=== PATIENT | female | born 1995 | race American Indian/Alaskan Native ===

== ENCOUNTER 2020-11-30 19:52 | Emergency (ER) | payer SELFPAY ==
[2020-11-30 22:30] LABS: HCG Qualitative,Urine Negative (Negative)
[2020-11-30 22:51] LABS: Bilirubin,Urine NEG (Negative); Blood,Urine NEG (Negative); Color,Urine Yellow (Yellow); Mucus,Urine 2+ /HPF
--- NOTE | 2020-12-01 00:06 | Emergency Department Report ---
ED Female HPI - General Chief complaint: Urogenital-Female Stated complaint: VAGINAL DISCOMFORT/PAIN Source: patient Mode of arrival: Ambulatory Limitations: No Limitations - History of Present Illness Initial comments: Patient is a 25-year-old -[place] female with no past medical history presents to the ED with complaint of acute onset persistent vaginal discharge, vaginal pain with itching and irritation for the last 1 week. Patient states that the pain is worse with any urination or movement. Patient denies dyspareunia, vaginal bleeding, low back pain, chest pain, shortness of breath, abdominal pain, nausea and vomiting or diarrhea, dizziness, fever and chills. MD Complaint: vaginal discharge, dysuria, possible STD, other (vaginal pain) -: Sudden, week(s) (1) Location: labia, other (vaginal) Radiation: non-radiating Severity: severe Severity scale (0 -10): 7 Quality: sharp Consistency: constant Improves with: none Worsens with: urination, intercourse Are you Now?: No Associated Symptoms: denies other symptoms, vaginal discharge, dysuria, rash (vaginal). denies: vaginal bleeding, abdominal pain, nausea/vomiting, fever/chills, headaches, loss of appetite, hematuria, shortness of breath, syncope, weakness - Related Data Sexually active: Yes : 0 Para: 0 A: 0 Previous Rx's Medication Instructions Recorded Last Taken Type Ibuprofen [Motrin 800 MG tab] 800 mg PO Q8HR PRN #20 tablet 07/13/16 Unknown Rx Sulfamethoxazole/Trimethoprim 1 each PO BID #20 tablet 07/13/16 Unknown Rx [Bactrim DS TAB] traMADoL [Ultram] 50 mg PO Q6HR PRN #7 tablet 07/13/16 Unknown Rx Acyclovir 400 mg PO Q8H #30 tablet 12/01/20 Unknown Rx Doxycycline Hyclate 100 mg PO Q12H #20 tablet. 12/01/20 Unknown Rx Fluconazole [Diflucan TAB] 200 mg PO QDAY #1 tablet 12/01/20 Unknown Rx Ibuprofen [Motrin] 600 mg PO Q8H PRN #30 tablet 12/01/20 Unknown Rx Ondansetron [Zofran Odt] 4 mg PO Q8HR PRN #20 tab.rapdis 12/01/20 Unknown Rx metroNIDAZOLE [Flagyl TAB] 500 mg PO Q12HR #20 tab 12/01/20 Unknown Rx Allergies Allergy/AdvReac Type Severity Reaction Status Date / Time No Known Allergies Allergy Unverified 07/13/16 15:23 ED Review of Systems ROS: Stated complaint: VAGINAL DISCOMFORT/PAIN Other details as noted in HPI Constitutional: denies: chills, fever Eyes: denies: eye pain, eye discharge, vision change ENT: denies: ear pain, throat pain Respiratory: denies: cough, shortness of breath, wheezing Cardiovascular: denies: chest pain, palpitations Endocrine: no symptoms reported Gastrointestinal: denies: abdominal pain, nausea, diarrhea Genitourinary: urgency, dysuria, frequency, discharge, other (painful vaginal lesions) Musculoskeletal: denies: back pain, joint swelling, arthralgia Skin: denies: rash, lesions Neurological: denies: headache, weakness, paresthesias Psychiatric: denies: anxiety, depression Hematological/Lymphatic: denies: easy bleeding, easy bruising ED Past Medical Hx - Past Medical History Previous Medical History?: No - Surgical History Past Surgical History?: No - Social History Smoking Status: Never Smoker Substance Use Type: None - Medications Home Medications: Home Medications Medication Instructions Recorded Confirmed Last Taken Type Ibuprofen [Motrin 800 MG tab] 800 mg PO Q8HR PRN #20 tablet 07/13/16 Unknown Rx Sulfamethoxazole/Trimethoprim 1 each PO BID #20 tablet 07/13/16 Unknown Rx [Bactrim DS TAB] traMADoL [Ultram] 50 mg PO Q6HR PRN #7 tablet 07/13/16 Unknown Rx Acyclovir 400 mg PO Q8H #30 tablet 12/01/20 Unknown Rx Doxycycline Hyclate 100 mg PO Q12H #20 tablet.dr 12/01/20 Unknown Rx Fluconazole [Diflucan TAB] 200 mg PO QDAY #1 tablet 12/01/20 Unknown Rx Ibuprofen [Motrin] 600 mg PO Q8H PRN #30 tablet 12/01/20 Unknown Rx Ondansetron [Zofran Odt] 4 mg PO Q8HR PRN #20 tab.rapdis 12/01/20 Unknown Rx metroNIDAZOLE [Flagyl TAB] 500 mg PO Q12HR #20 tab 12/01/20 Unknown Rx ED Physical Exam - General Limitations: No Limitations General appearance: alert, in no apparent distress - Head Head exam: Present: atraumatic, normocephalic, normal inspection - Eye Eye exam: Present: normal appearance, PERRL, EOMI Pupils: Present: normal accommodation - ENT ENT exam: Present: normal exam, normal orophraynx, mucous membranes moist, TM's normal bilaterally, normal external ear exam - Neck Neck exam: Present: normal inspection, full ROM - Respiratory Respiratory exam: Present: normal lung sounds bilaterally. Absent: respiratory distress, wheezes, rhonchi, stridor, chest wall tenderness, accessory muscle use, decreased breath sounds, prolonged expiratory - Cardiovascular Cardiovascular Exam: Present: regular rate, normal rhythm, normal heart sounds. Absent: systolic murmur, diastolic murmur, rubs, gallop - GI/Abdominal GI/Abdominal exam: Present: soft, normal bowel sounds. Absent: tenderness, guarding, hyperactive bowel sounds, hypoactive bowel sounds, organomegaly - External exam: Present: erythema, lesions (Vesicular ulcerated lesions throughout the labia minora and the perineum with yellowish purulent discharge) Speculum exam: Present: vaginal discharge, cervical discharge Bi-manual exam: Present: other (Female ED provider Ms. Hale present during the pelvic exam.) - Extremities Exam Extremities exam: Present: normal inspection, full ROM, normal capillary refill - Back Exam Back exam: Present: normal inspection, full ROM. Absent: tenderness, CVA tenderness (R), CVA tenderness (L), muscle spasm, paraspinal tenderness, vertebral tenderness - Neurological Exam Neurological exam: Present: alert, oriented X3, CN II-XII intact, normal gait, reflexes normal - Psychiatric Psychiatric exam: Present: normal affect, normal mood - Skin Skin exam: Present: warm, dry, intact, normal color. Absent: rash ED Course Vital Signs 11/30/20 12/01/20 20:10 00:48 Temperature 98.4 F 98.2 F Pulse Rate 95 H 72 Respiratory 18 16 Rate Blood Pressure 121/71 Blood Pressure 111/62 [Left] O2 Sat by Pulse 95 100 Oximetry ED Medical Decision Making - Medical Decision Making This is a 25-year-old -[place] female with no past medical history presents to the ED with complaint of acute onset persistent vaginal discharge, vaginal pain with itching and irritation for the last 1 week. In the ED, patient is alert and oriented x3 and is not in any distress. Urinalysis showed mild urinary tract infection but wet prep test was positive for trichomonas and Gardnerella vaginalis consistent with bacterial vaginosis. Based on the clinical finding of suspected tender ulcerated vesicular lesions, patient was also diagnosed with suspected genital herpes. Patient was therefore discharged home on antibiotics for bacterial vaginosis and trichomonas, also given antiv iral for suspected genital herpes infection. Patient was also discharged home on pain medications and advised to follow-up with [facility] physician, primary care physician or [facility] for further evaluation. Patient was also advised to ensure that her sexual partner also gets tested and treated at the [facility]. - Differential Diagnosis Genital herpes; UTI; bacterial vaginosis; trichomonas; STD Critical care attestation.: If time is entered above; I have spent that time in minutes in the direct care of this critically ill patient, excluding procedure time. ED Disposition Clinical Impression: Trichomonas vaginalis infection, Bacterial vaginosis, Genital herpes in women, Acute urinary tract infection, STD (sexually transmitted disease) Disposition: TO HOME OR SELFCARE Is pt being admited?: No Does the pt Need Aspirin: No Condition: Stable Instructions: Urinary Tract Infection, Adult, [id number], Bacterial Vaginosis, [id number], Genital Herpes, Trichomoniasis, Bacterial Vaginosis (ED) Additional Instructions: All lab test results were reviewed and showed significant STD specifically Trichomonas vaginalis and Genital herpes identified on genital exam. Therefore take medications with food, drink plenty of fluids and follow up with the [facility] and your ObyGyn physician for further reevaluation. Ensure that your sexual partner also gets treated for STD at the [facility]. Return to the ED immediately if symptoms get worse. Prescriptions: Acyclovir 400 mg PO Q8H #30 tablet Fluconazole [Diflucan TAB] 200 mg PO QDAY #1 tablet Doxycycline Hyclate 100 mg PO Q12H #20 tablet. metroNIDAZOLE [Flagyl TAB] 500 mg PO Q12HR #20 tab Ibuprofen [Motrin] 600 mg PO Q8H PRN #30 tablet PRN Reason: Pain Ondansetron [Zofran Odt] 4 mg PO Q8HR PRN #20 tab.rapdis PRN Reason: Nausea Referrals: [facility] Depart [Outside] - 3-5 Days Forms: STI Treatment and Prevention Time of Disposition: 00:03 Print Language: SAMI
[2020-12-01 04:14] VITALS: BP 111/62
== END 2020-12-01 00:48 | disposition home or self-care (01) ==
LOC: ED 19:52
DX: N39.0 Urinary tract infection, site not specified (principal); A64 Unspecified sexually transmitted disease; A60.09 Herpesviral infection of other urogenital tract; A59.9 Trichomoniasis, unspecified; N76.0 Acute vaginitis; Z79.899 Other long term (current) drug therapy
CPT/HCPCS: 81001; 81025; 87086; 87210